=== PATIENT | female | born 1955 | race Caucasian/White ===

== ENCOUNTER 2023-09-07 13:00 | Outpatient (CLI) | payer OTHER | END 2023-09-07 14:00 | disposition home or self-care (01) | LOC: CSHRAD 13:00 | PROVIDERS: ATTEND Student in an Organized Health Care Education/Training Program | DX: M89.8X2 Other specified disorders of bone, upper arm (principal); M89.8X3 Other specified disorders of bone, forearm ==

== ENCOUNTER 2023-12-01 08:06 | Outpatient (CLI) | payer MEDICARE ==
[2023-12-01] MEDS ORDERED: Iopamidol 300 61% 100 ML VIAL FS ONE (15:13)
== END 2023-12-01 08:07 | disposition home or self-care (01) ==
LOC: CSHCT 08:06
PROVIDERS: ATTEND Internal Medicine
DX: C18.9 Malignant neoplasm of colon, unspecified (principal); K31.89 Other diseases of stomach and duodenum
CPT/HCPCS: 36415; 71260; 74177; 82565; Q9967